=== PATIENT | male | born 1975 | race Caucasian/White ===

== ENCOUNTER 2019-10-13 12:29 | Observation (INO) ==
--- OUTSIDE RECORDS SUMMARY | 2019-10-13 12:32 | External Medical Summary | Continuity of Care Document ---
:1975 Author Name Rickey Watkins Address Unavailable Unavailable , Care Team Providers Name Role Phone Brock Watkins Un[email or web address]enda GALEAS Unavailable [email or web address] Yo Watkins Unavailable [email or web address] [place] Watkins Unavailable Unavailable Unavailable Unavailable Unavailable Problems Bone cyst (733.20) (M85.60) Hyperlipidemia (272.4) (E78.5) Hypertension (401.9) (I10) Sleep apnea (780.57) (G47.30) Hypoxia (799.02) (R09.02) Need for influenza vaccination (V04.81) (Z23) Allergies and Adverse Reactions Lincocin SOLN (Allergy) Penicillins (Allergy) Trent CAPS (Allergy) Medications Metoprolol Succinate ER 50 MG Oral Table t Extended Release 24 Hour; TAKE 1 TABLET BY ORAL ROUTE EVERY DAY June Gutiérrez Start: 25-Jul-2014 Quantity: 90 Refills: 3 Simvastatin 20 MG Oral Tablet Refills: 0 Lisinopril 20 MG Oral Tablet; TAKE ONE TABLET BY MOUTH ONE TIME DAILY June Gutiérrez Start: 16-Nov-2014 Quantity: 90 Refills: 3 Tamsulosin HCl - 0.4 MG Oral Capsule Refills: 0 ALPRAZolam 0.25 MG Oral Tablet; take 1 tablet daily if neede d GUDELIA Doshi Start: 22-Sep-2013 Quantity: 5 Refills: 1 Procedures History of Ankle Surgery Status: Complet ed Immunizations Influenza On: 10-Apr-2014 Lot #: [id number], [employer] Family History Father Family history of Father At Age ___ Status: Active Mother Family history of Mother At Age ___ Status: Active Family history of Diabetes Mellitus (V18.0) Status: Active Family history of Surgery For Abdominal Aortic Aneurysm Stat us: Active Family history of Intracranial Aneurysm Repair Status: Activ e Family history of Aneurysm Of The Aortic Arch Status: Active Family history of Adult Sleep Apnea Status: Active Brother Family history of Diabetes Mellitus (V18.0) Status: Active Family history of Hypertension (V17.49) Status: Active Family history of Family Health Status Of 2nd Brother - Dece ased Status: Active Family history of Family Health Status Of 3rd Brother - Dece ased Status: Active Family history of Adult Sleep Apnea Status: Active Sister Family history of Hypertension (V17.49) Status: Active natural daughter Family history of Asthma (V17.5) Status: Active natural son Family history of Family Health Status Child 1 Son Status: A ctive Social History - Smoking Status Never smoked tobacco Plan of Treatment Planned Observations Planned Goals not documented Results No Known Results Results not documented
--- OUTSIDE RECORDS SUMMARY | 2019-10-13 12:32 | External Medical Summary | Continuity of Care Document ---
:1975 Author Name Rickey Watkins Address Unavailable Unavailable , Care Team Providers Name Role Phone Brock Watkins Unavailable [email or web address] [place] Glenda GALEAS Unavailable [email or web address] Yo Watkins Unavailable [email or web address] [place] Brock Watkins Unavailable Unavailable Unavailable Unavailable Unavailable [...] ed Immunizations Influenza On: 10-Apr-2014 Lot #: [id number], [employer] PA[employer]UR Family History Father Family history [...]
[2019-10-13] MEDS ORDERED: SODIUM CHLORIDE 0.9% 1000ML 1,000 ML IV ONE (12:37)
[2019-10-13] MEDS ORDERED: KETOROLAC TROMETHAMINE 15 MG/ML VIAL IV STA (12:37)
--- NOTE | 2019-10-13 12:52 | Emergency Department Note ---
History of Present Illness General Chief Complaint: Abdominal Pain Stated Complaint: ABD PAIN LT SIDE Time Seen by Provider: 10/13/19 12:37 History of Present Illness Provider Complaint: abdominal pain and flank pain Onset (ago): 4 day(s) Pain Consistency: intermittent Location: L flank Radiation: LLQ Severity: moderate Maximum Pain Intensity: 4 Current Pain Intensity: 4 Quality: + stabbing and + sharp Relieved By: + medication (Hydrocodone) Exacerbated By: + nothing Associated Symptoms: + diarrhea and + fever (T-max 101); no vomiting, no dysuria, no hematemesis, no hematochezia, no melena and no hematuria Patient was started on Cipro by his PCP on Thursday. Home Medications Home Medications Medication Instructions Recorded Confirmed Type acetaminophen [Tylenol Extra 500 - 1,000 mg PO Q6H PRN 10/13/19 10/13/19 History Strength] hydrocodone-acetaminophen 0 tab PO Q6H PRN 10/13/19 10/13/19 History lisinopril [Zestril] 20 mg PO HS 10/13/19 10/13/19 History loratadine [Claritin] 10 mg PO QAM 10/13/19 10/13/19 History metoprolol succinate [Toprol XL] 50 mg PO QAM 10/13/19 10/13/19 History simvastatin [Zocor] 20 mg PO HS 10/13/19 10/13/19 History Allergies Allergy/AdvReac Type Severity Reaction Status Date / Time Penicillins Allergy Unknown Unknown- Unverified 10/13/19 13:37 had allergy as a child Past Med/Surg History Medical History (Updated 10/13/19 @ 13:44 by Raymon Urbano) Hyperlipidemia Hypertension No pertinent family history Surgical History (Updated 10/13/19 @ 12:51 by Raymon Urbano) History of ankle surgery Social History Preferred Language: [place] Communication Ability: Effective 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 Beliefs That Will Affect Care: None Current Living Situation: Spouse Other Information That Helps Us Care for You: No Feels Safe at Home: Yes Safety Concerns: Feels Safe At This Time Smoking Status: Never smoker Do You Dip or Chew Tobacco: No ; Second Hand Exposure: No ; Tobacco Cessation Education Requested by Patient: No Hx Alcohol Use: Yes Alcohol type: other Hx Substance Use: No Review of Systems A total of 10 systems reviewed and were otherwise negative Physical Exam Vital Signs: Vital Signs - 24 hr 10/13/19 12:35 10/13/19 14:26 Temperature 36.9 C Temperature Source Oral Pulse Rate 86 Pulse Rate [Right Finger] 74 Pulse Rhythm Regular Pulse Strength Normal Respiratory Rate 16 20 Respiratory Effort / Characteristics Non-Labored Non-Labored Respiratory Depth Normal Normal Respiratory Patter n Regular Blood Pressure 144/87 H Blood Pressure [Le ft Arm] 120/90 Blood Pressure Allie n 106 Blood Pressure Allie n [Left Arm] 100 Blood Pressure Pos ition Sitting Blood Pressure Pos ition [Left Arm] Sitting Pulse Oximetry 96 97 Oxygen Delivery Me thod Room Air Room Air Sepsis Recent Feve r Within 48 Hours No Sepsis Action Take n by Nursing No Action Required Physical Exam: Physical Exam GENERAL: He is oriented to person, place, and time. He appears well-developed and well-nourished. He does not appear distressed. HENT: Exam performed. - Head: Normocephalic and atraumatic. - Right Ear: External ear normal. No mastoid tenderness. - Left Ear: External ear normal. No mastoid tenderness. - Mouth/Throat: The oropharynx is clear and moist. No trismus in the jaw. No dental abscesses or uvula swelling. No oropharyngeal exudate or tonsillar abscesses. EYES: Conjunctivae and EOM are normal. Pupils are equal, round, and reactive to light. Right eye exhibits no discharge. Left eye exhibits no discharge. No scleral icterus. NECK: Normal range of motion. Neck supple. No JVD present. No spinous process tenderness present. No carotid bruit present. No rigidity. No tracheal deviation and normal range of motion present. No Brudzinski's sign and no Kernig's sign noted. CV: Normal rate, regular rhythm, normal heart sounds and intact distal pulses. There is no peripheral edema. Palpable radial pulses bue. PULM/CHEST: Effort normal and breath sounds normal. No respiratory distress. No stridor. He has no wheezes. He has no rales. - Chest Wall: He exhibits no tenderness. ABD: The abdomen is soft. Bowel sounds are normal. He has no distension. No mass is present. There is no tenderness. There is no rebound, no guarding, no Timmons's sign and no tenderness at McBurney's point. Rovsig negative. Left- sided CVA tenderness. MUSC/SKEL: Normal range of motion. There is no peripheral edema, tenderness or deformity. LYMPH: No cervical adenopathy. NEURO: He is alert and oriented to person, place, and time. He has normal strength. No cranial nerve deficit or sensory deficit. Coordination and gait normal. GCS eye subscore is 4. GCS verbal subscore is 5. GCS motor subscore is 6. Cerebellar tests wnl. SKIN: Skin is warm and dry. He is not diaphoretic. PSYCH: He has a normal mood and affect. Behavior is normal. Judgment and thought content normal. Course Course 1245: The patient was evaluated in room A3. A complete history and physical exam was performed. 1325: Vital signs stable. Patient reports his pain is better status post receiving analgesia in the emergency department. Imaging shows pancreatitis. Lipase is not elevated. Labs also show leukocytosis of 13.48. Patient will be admitted to [facility] Hospitalist team, GUDELIA Dutta was notified. 1358: Spoke with Chhaya Parisi PA-C who states to admit to Dr. Martínez. Administered Medications Discontinued Medications Sodium Chloride (Nss 1000ml) 1,000 mls @ 999 mls/hr IV .Q1H1M ONE Stop: 10/13/19 13:37 Last Infusion: 10/13/19 14:18 Dose: 0 mls/hr Documented by: [id number] Admin: 10/13/19 12:51 Dose: 999 mls/hr Documented by: [id number] Ketorolac Tromethamine (Toradol) 15 mg IV NOW STA Stop: 10/13/19 12:38 Last Admin: 10/13/19 12:51 Dose: 15 mg Documented by: [id number] Medical Decision Making Laboratory Data Result diagrams: 10/13/19 12:55 10/13/19 12:55 Lab Results 10/13/19 10/13/19 10/13/19 Range/Units 12:55 12:55 12:55 WBC 13.48 H (4.8-10.8) K/uL RBC 5.24 (4.7-6.1) M/uL Hgb 16.3 (14.0-18.0) g/dL Hct 46.6 (42-52) % MCV 88.9 (80-100) fL MCH 31.1 (25-34) pg MCHC 35.0 (32-36) g/dL RDW Std Deviation 46.0 (36.4-46.3) fL RDW Coeff of Dwight 14.0 (11.5-14.5) % Plt Count 303 (130-400) K/uL MPV 9.9 (7.4-10.4) fL Immature Gran % (Auto) 0.2 % Neut % (Auto) 77.1 % Lymph % (Auto) 12.2 % [place] % (Auto) 8.5 % Eos % (Auto) 1.6 % Baso % (Auto) 0.4 % Immature Gran # (Auto) 0.03 H (0.00-0.02) K/uL Neut # (Auto) 10.40 H (1.4-6.5) K/uL Lymph # (Auto) 1.64 (1.2-3.4) K/uL [place] # (Auto) 1.15 H (0.11-0.59) K/uL Eos # (Auto) 0.21 (0-0.5) K/uL Baso # (Auto) 0.05 (0-0.2) K/uL Sodium 132 L (136-145) mmol/L Potassium 3.9 (3.5-5.1) mmol/L Chloride 100 (98-107) mmol/L Carbon Dioxide 28 (21-32) mmol/L Anion Gap 5.0 (3-11) BUN 15 (7-18) mg/dl Creatinine 1.39 (0.6-1.4) mg/dl Est Cr Clr Drug Dosing 77.3 ml/min Est GFR ( Amer) 69.9 Est GFR (Non-Af Amer) 60.3 BUN/Creatinine Ratio 10.4 (10-20) Glucose 95 (70-99) mg/dl Calcium 9.4 (8.5-10.1) mg/dl Total Bilirubin 0.9 (0.2-1) mg/dl Direct Bilirubin 0.2 (0-0.2) mg/dl AST 71 H (15-37) U/L ALT 106 H (12-78) U/L Alkaline Phosphatase 66 (45-117) U/L Total Protein 8.4 H (6.4-8.2) gm/dl Albumin 3.5 (3.4-5.0) gm/dl Lipase 133 (73-393) U/L Urine Color Yellow Urine Appearance Clear (Clear) Urine pH 5.5 (4.5-7.5) Ur Specific [place] 1.009 (1.000-1.030) Urine Protein Negative (Negative) Urine Glucose (UA) Negative (Negative) Urine Ketones Negative (Negative) Urine Blood 1+ H (Negative) Urine Nitrite Negative (Negative) Urine Bilirubin Negative (Negative) Urine Urobilinogen Negative (Negative) Ur Leukocyte Esterase Negative (Negative) Urine WBC (Auto) 1-5 (0-5) /hpf Urine RBC (Auto) 0-4 (0-4) /hpf U Hyaline Cast (Auto) 0 (0-5) /lpf U Epithel Cells (Auto) 10-20 H (0-5) /lpf Urine Bacteria (Auto) Negative (Negative) Imaging Data Radiologist's Impression: ABDOMEN AND PELVIS CT WITHOUT CONTRAST CT DOSE: 1021.22 mGycm HISTORY: L flank and abdominal pain TECHNIQUE: Multiaxial CT images of the abdomen and pelvis were performed without contrast. A dose lowering technique was utilized adhering to the principles of ALARA. COMPARISON STUDY: Abdomen and pelvis CT 06/23/2013. FINDINGS: Linear density within the base of the left lower lobe consistent with subsegmental atelectasis. No pneumoperitoneum. No pneumatosis. Stable benign- appearing lucent lesion within the proximal left femur. No fractures within the visualized osseous structures. Trace left pleural effusion. The unenhanced liver, spleen, adrenal glands, and gallbladder are unremarkable. No renal or ureteral stones. No hydronephrosis. Mild bladder wall thickening is likely due to underdistention. Stable 5 cm hypodense lesion within the left kidney. This contains a punctate calcification. Given the long-term stability this favors a benign cyst. No retroperitoneal lymphadenopathy. Normal caliber abdominal aorta. Mild thickening and surrounding inflammatory change at the tail of the pancreas as well as trace fluid along the left paracolic gutter. Findings are consistent with acute pancreatitis. Suboptimal evaluation for bowel pathology due to the lack of intravenous and oral contrast. However, there is no definite bowel wall thickening or obstruction. Colonic diverticulosis. No evidence for diverticulitis. Normal appendix. IMPRESSION: 1. Inflammatory change and a small amount of fluid surrounding the tail of the pancreas consistent with acute pancreatitis. 2. Trace left pleural effusion. 3. No renal or ureteral stones. No hydronephrosis. 4. No definite bowel wall thickening or obstruction. 5. Colonic diverticulosis. 6. Additional stable findings as described above. ACT 112: Negative or not required by law. Electronically signed by: Norberto Sinclair M.D. 10/13/2019 1:11 PM Dictated: 10/13/19 1304 Transcribed: 10/13/19 1304 [facility] Narrative 1245: The patient was evaluated in room A3. A complete history and physical exam was performed. 1325: Vital signs stable. Patient reports his pain is better status post receiving analgesia in the emergency department. Imaging shows pancreatitis. Lipase is not elevated. Labs also show leukocytosis of 13.48. Patient will be admitted to [facility] hospitalist team, GUDELIA Dutta was notified. 1358: Spoke with Chhaya Parisi PA-C who states to admit to Dr. Martínez Impression & Plan Pancreatitis Discharge Plan Visit Data Chief Complaint: Abdominal Pain Stated Complaint: ABD PAIN LT SIDE ED Provider: Raymon Urbano Discharge Problem: Pancreatitis Patient Disposition: Being Evaluated by Hospitalist Forms [facility] Prescriptions: No Action metoprolol succinate [Toprol XL] 50 mg tablet extended release 24 hr 50 mg PO QAM RF: 0 lisinopril [Zestril] 20 mg tablet 20 mg PO HS RF: 0 acetaminophen [Tylenol Extra Strength] 500 mg Tablet 500 - 1,000 mg PO Q6H PRN (Reason: Pain) RF: 0 simvastatin [Zocor] 20 mg tablet 20 mg PO HS RF: 0 loratadine [Claritin] 10 mg Tablet 10 mg PO QAM RF: 0 hydrocodone-acetaminophen 2.5-325 mg Tablet 0 tab PO Q6H PRN (Reason: Pain) RF: 0 Referrals Referrals: Bernardino Ivey [Primary Care Provider] - Discharge Problem: Pancreatitis Qualifiers: Chronicity: acute Pancreatitis type: unspecified pancreatitis type Acute pancreatitis complication: unspecified Qualified Code(s): K85.90 - Acute pancreatitis without necrosis or infection, unspecified
[2019-10-13 13:00] LABS: Basophils # (auto) 0.05 K/uL (0-0.2); Basophils % (auto) 0.4 %; Eosinophils # (auto) 0.21 K/uL (0-0.5); Eosinophils % (auto) 1.6 %; Hematocrit (blood only) 46.6 % (42-52); Hemoglobin 16.3 g/dL (14.0-18.0); Immature Granulocytes # (auto) 0.03 K/uL (0.00-0.02); Immature Granulocytes % (auto) 0.2 %; Lymphocytes # (auto) 1.64 K/uL (1.2-3.4); Lymphocytes % (auto) 12.2 %; Mean Corpuscular Hemoglobin 31.1 pg (25-34); Mean Corpuscular Volume 88.9 fL (80-100); Mean Platelet Volume 9.9 fL (7.4-10.4); Monocytes # (auto) 1.15 K/uL (0.11-0.59); Monocytes % (auto) 8.5 %; Neutrophils % (auto) 77.1 %; Platelet Count 303 K/uL (130-400); Red Blood Count 5.24 M/uL (4.7-6.1); White Blood Count 13.48 K/uL (4.8-10.8)
[2019-10-13 13:07] LABS: Appearance Urine Clear (Clear); Bilirubin Urine Negative (Negative); Blood Urine 1+ (Negative); Color Urine Yellow; Glucose Urine UA Negative (Negative); Ketones Urine Negative (Negative); Leukocyte Esterase Urine Negative (Negative); Nitrite Urine Negative (Negative); Protein Urine Negative (Negative); Specific Gravity Urine 1.009 (1.000-1.030); Urobilinogen Urine Negative (Negative); pH Urine 5.5 (4.5-7.5)
--- NOTE | 2019-10-13 13:13 | CT Scan Report ---
ABDOMEN AND PELVIS CT WITHOUT CONTRAST CT DOSE: 1021.22 mGycm HISTORY: L flank and abdominal pain TECHNIQUE: Multiaxial CT images of the abdomen and pelvis were performed without contrast. A dose lo wering technique was utilized adhering to the principles of ALARA. COMPARISON STUDY: Abdomen and pelvis CT 06/23/2013. FINDINGS: Linear density within the base of the left lower lobe consistent with subsegmental atelecta sis. No pneumoperitoneum. No pneumatosis. Stable benign-appearing lucent lesion within the proximal l eft femur. No fractures within the visualized osseous structures. Trace left pleural effusion. The un enhanced liver, spleen, adrenal glands, and gallbladder are unremarkable. No renal or ureteral stones . No hydronephrosis. Mild bladder wall thickening is likely due to underdistention. Stable 5 cm hypod ense lesion within the left kidney. This contains a punctate calcification. Given the long-term stabi lity this favors a benign cyst. No retroperitoneal lymphadenopathy. Normal caliber abdominal aorta. M ild thickening and surrounding inflammatory change at the tail of the pancreas as well as trace fluid along the left paracolic gutter. Findings are consistent with acute pancreatitis. Suboptimal evaluat ion for bowel pathology due to the lack of intravenous and oral contrast. However, there is no defini te bowel wall thickening or obstruction. Colonic diverticulosis. No evidence for diverticulitis. Norm al appendix. IMPRESSION: 1. Inflammatory change and a small amount of fluid surrounding the tail of the pancreas consistent wi th acute pancreatitis. 2. Trace left pleural effusion. 3. No renal or ureteral stones. No hydronephrosis. 4. No definite bowel wall thickening or obstruction. 5. Colonic diverticulosis. 6. Additional stable findings as described above. ACT 112: Negative or not required by law. Electronically signed by: Norberto Sinclair M.D. 10/13/2019 1:11 PM
[2019-10-13 13:15] LABS: Albumin Level 3.5 gm/dl (3.4-5.0); BUN Creatinine Ratio 10.4 (10-20); Bilirubin Direct 0.2 mg/dl (0-0.2); Calcium 9.4 mg/dl (8.5-10.1); Creatinine Clr Calc Pharmacy 77.3 ml/min; Est GFR (African American) 69.9; Est GFR (Non-African American) 60.3; Potassium 3.9 mmol/L (3.5-5.1)
[2019-10-13 13:18] LABS: Bilirubin,Total 0.9 mg/dl (0.2-1); Total Protein 8.4 gm/dl (6.4-8.2)
[2019-10-13 13:24] LABS: RBC Urine Automated 0-4 /hpf (0-4)
[2019-10-13 13:25] LABS: Bacteria Urine Automated Negative (Negative); Cast Urine Automated 0 /lpf (0-5)
--- NOTE | 2019-10-13 15:19 | History & Physical Report ---
Date of Service October 13, 2019 Assessment & Plan (1) Abdominal pain: (2) Leucocytosis: This is a 44 year old M who has a significant PMH of HTN, HLD, Tobacco abuse, Obesity who presents to ED 2/2 to abdominal pain x 4-[address] can abd/pelvis concerning for Inflammatory change and a small amount of fluid surrounding the tail of the pancreas consistent with acute pancreatitis. Normal Lipase. History of his location and description of abdominal pain doesn't favor pancreatitis, as well as fever and leukocytosis. Has had 7 doses of cipro. admit to Med/Surg Obtain CT scan abd/pelvis with IV and oral contrast to eval bowel pathology r/o diverticulitis, abscess, microperforation start IV rocephin 2g and IV flagyl 500mg IV Q8h until imaging returns RUQ US Remain NPO with sips until CT scan complete IVF 100cc/hr x 2 L IV morphine 4mg q4hr severe pain, PO vicodin for moderate pain (3) Elevated LFTs: AST 71, ALT 106 no RUQ pain, ? if abd pain related to gall bladder or bile duct pathology though history doesn't suggest that he is on statin obtain RUQ U/S (4) Hypertension: blood pressure stable continue lisinopril and metoprolol (5) Hyperlipidemia: hold statin for now in setting of elevated LFT (6) Microscopic hematuria: pt with long time microscopic hematuria follows Dr. Gonzalez - last seen in 2017 has had cystoscopy jun 2013 and noted heavy trabeculation with no stricture or BPH would recommend follow up with Urology given its been 3 years (7) Renal cyst, left: 5cm L renal cyst follows Dr. Gonzalez of urology last seen in 2017 - she felt no further follow up imaging needed (8) DVT prophylaxis: Lovenox SQ Disposition: admit to med/surg Follow up: PCP Bernardino Ivey PA-C upon discharge Pt was seen and examined in collaboration with Dr. Martínez, please see addendum History of Present Illness Chief Complaint: Abdominal pain x 4-5 days. Primary Care Provider: Bernardino Ivey This is a 44 year old M who has a significant PMH of HTN, HLD, Tobacco abuse, Obesity who presents to ED 2/2 to abdominal pain x 4-5 days. Pain started Thursday night around 00:00. Pain located L mid abdomen, LUQ with radiation up to L flank. Pain was constant, 10/10, severe, sharp. "I thought maybe I had to go to the bathroom, but I couldn't." He was up almost all night trying to move bowels. Pain made worse with deep breaths and leaning forward. He had minimal improvement with APAP and had old hydrocodone so tried that. He did telemedicine with PCP on Thursday who was concerning for possible diverticulitis and prescribed cipro 500mg bid. He has taken 7 doses of this. Pain started to improve on Thursday and is less severe. He had intermittent fevers 99.6-101 until yesterday. Diminished appetite eating mostly soup and jello. Denies N/V, chills, sweats, lightheaded, dizziness, chest pain, sob, cough, hemetemsis, melena, hematochezia, dysuria, increased urg/freq with urination. He tried a milkshake last evening which causes him to have diarrhea but otherwise denies change in bowel habits. Never had similar sx in past. +FH of diverticulitis in sister and mother. In ED patient remained hemodynamically stable. He was afebrile in ED. Lab work notable for leukocytosis 13 point five 8K, H&H 16.3 and 46.6, platelet 303, sodium 132, BUN 15, creatinine 1.39, AST 71, ALT 106, urinalysis +[address] scan abd/pelvis w/o contrast revealed + tail pancreatitis, no renal stone, + stable 5cm renal cyst stable from prior 2012 CT, Inflammatory change and a small amount of fluid surrounding the tail of the pancreas consistent with acute pancreatitis, Trace left pleural effusion, Colonic diverticulosis. In ED he received IVF and IV toradol with improvement in pain. Allergies Allergy/AdvReac Type Severity Reaction Status Date / Time Penicillins Allergy Unknown Unknown- Unverified 10/13/19 13:37 had allergy as a child Home Medications Home Medications Medication Instructions Recorded Confirmed Type acetaminophen [Tylenol Extra 500 - 1,000 mg PO Q6H PRN 10/13/19 10/13/19 History Strength] ciprofloxacin HCl [Cipro] 500 mg PO Q12H 10/13/19 10/13/19 History hydrocodone-acetaminophen 0 tab PO Q6H PRN 10/13/19 10/13/19 History lisinopril [Zestril] 20 mg PO HS 10/13/19 10/13/19 History loratadine [Claritin] 10 mg PO QAM 10/13/19 10/13/19 History metoprolol succinate [Toprol XL] 50 mg PO QAM 10/13/19 10/13/19 History simvastatin [Zocor] 20 mg PO HS 10/13/19 10/13/19 History Past Med/Surg History Medical History (Updated 10/13/19 @ 15:57 by Chhaya San PA-C) Hyperlipidemia Hypertension Surgical History History of ankle surgery Family History Mother Diverticulitis Sister Diverticulitis Social History (Updated 10/13/19 @ 15:18 by Chhaya San PA-C) Preferred Language: Urdu Communication Ability: Effective Bobbin Collector Required: No Beliefs That Will Affect Care: None Current Living Situation: Spouse current occupational status: employed Other Information That Helps Us Care for You: No Feels Safe at Home: Yes Safety Concerns: Feels Safe At This Time Smoking Status: Current every day smoker Tobacco Type: smokeless tobacco ; Cigarettes Per Day: 1 can of chew a day ; Do You Dip or Chew Tobacco: Yes ; Second Hand Exposure: No ; Tobacco Cessation Education Requested by Patient: No Hx Alcohol Use: Yes Alcohol type: other Hx Substance Use: No Review of Systems Review of Systems: All systems reviewed & are unremarkable except as noted in HPI & below Physical Exam Physical Exam: Constitutional: WD/WN, Obese, M, vitals as above, NAD, sitting up in bed, pleasant, conversing easily Head: Normocephalic, Atraumatic Eyes: PERRL, conjunctivae normal, anicteric sclerae ENMT: external ear and nose normal, oropharynx normal Neck: trachea midline, no thyromegaly normal visual inspection Respiratory: normal respiratory effort, lungs clear to auscultation, no wheeze, rales, rhonchi. Normal insp/exp effort, no accessory muscle use Cardiovascular: RRR, no murmur, no edema Vessels: no JVD or carotid bruit Chest: normal inspection of chest Abdomen: protuberant abd, normal bowel sounds, soft, + tender to palpation L Lateral abdominal wall in upper quadrant and L Flank, No jackie cva tenderness Musculoskeletal: no cyanosis or clubbing, extremities motor strength 5/5 Skin: no rashes, warm and dry normal turgor Neurologic: PERRL, EOMI, accommodation nl, no face palsy, no dysarthria CN's II-XI intact bilaterally and moves all extremities Psychiatric: A+Ox3, euthymic affect Lymphatic: no cervical or axillary lymphadenopathy : deferred Results & Data Results & Data ([facility]) Vital Signs (Past 12 Hours) Vital Signs Temp Pulse Pulse Resp BP BP Pulse Ox 10/13/19 14:26 74 20 120/90 97 10/13/19 12:35 36.9 C 86 16 144/87 H 96 Laboratory Results Short CBC 10/13/19 10/13/19 Range/Units 12:55 12:55 WBC 13.48 H (4.8-10.8) K/uL Hgb 16.3 (14.0-18.0) g/dL Hct 46.6 (42-52) % Plt Count 303 (130-400) K/uL Creatinine 1.39 (0.6-1.4) mg/dl BMP 10/13/19 12:55 Sodium 132 L Potassium 3.9 Chloride 100 Carbon Dioxide 28 BUN 15 Creatinine 1.39 Glucose 95 Calcium 9.4 Liver Function 10/13/19 Range/Units 12:55 Total Bilirubin 0.9 (0.2-1) mg/dl Direct Bilirubin 0.2 (0-0.2) mg/dl AST 71 H (15-37) U/L ALT 106 H (12-78) U/L Alkaline Phosphatase 66 (45-117) U/L Albumin 3.5 (3.4-5.0) gm/dl Urine 10/13/19 Range/Units 12:55 Urine Color Yellow Urine Appearance Clear (Clear) Urine pH 5.5 (4.5-7.5) Ur Specific [place] 1.009 (1.000-1.030) Urine Protein Negative (Negative) Urine Glucose (UA) Negative (Negative) Diagnostic Findings CT Abd/Pelvis: IMPRESSION: 1. Inflammatory change and a small amount of fluid surrounding the tail of the pancreas consistent with acute pancreatitis. 2. Trace left pleural effusion. 3. No renal or ureteral stones. No hydronephrosis. 4. No definite bowel wall thickening or obstruction. 5. Colonic diverticulosis. 6. Additional stable findings as described above. Medications Administered Discontinued Medications Sodium Chloride (Nss 1000ml) 1,000 mls @ 999 mls/hr IV .Q1H1M ONE Stop: 10/13/19 13:37 Last Infusion: 10/13/19 14:18 Dose: 0 mls/hr Documented by: [id number] Admin: 10/13/19 12:51 Dose: 999 mls/hr Documented by: [id number] Ketorolac Tromethamine (Toradol) 15 mg IV NOW STA Stop: 10/13/19 12:38 Last Admin: 10/13/19 12:51 Dose: 15 mg Documented by: [id number] Code Status & VTE Plan Code Status Full Code VTE Prophylaxis Plan VTE Prophylaxis will be ordered: Yes Supervising Physician Co-Signing Physician Notes I have seen and examined the patient and have discussed the case with the provider above. I agree with the assessment and plan as stated with the following exceptions. 44 yo M with recent LLQ pain with radiation into his left flank and fever for several days presented after no improvement in his LLQ pain. He reports being given Cipro for presumed acute diverticulitis and was improving clinically including fevers resolving and feeling better. However, he felt the pain should have been more improved than it was today, prompting evaluation at the ER. Exam reveals a nontender abdomen with some very specific point tenderness to the lateral lower costal margin on the left. There is inflammation in the tail of the pancreas on imaging and a lack of colonic inflammation, leading one to suspect acute pancreatitis. However, there is no epigastric tenderness, pain or nausea with food or at all, and his lipase is normal. No evidence of fluid collection or abscess was seen on imaging and in setting of fever and persistent abdominal pain, he was empirically covered on Rocephin/Flagyl in case of microperforation. No changes in BMs were noted including no hematochezia. No evidence of kidney stones. I suspect he was getting better with time and supportive measures at home (including self administered hydrocodone), and won't need antibiotics moving forward if he continues to appear clinically well. He appears well this afternoon. Will hold him NPO x sips and chips until GI can weigh in. Cont IVF. Appreciate recommendations. Likely to home in next 1-2 days. Mauricio, DO
[2019-10-13] MEDS ORDERED: MoRPHine SULFATE 4 MG/ML 1 ML CARP\\VIAL IV PRN (16:27)
[2019-10-13] MEDS ORDERED: ONDANSETRON INJ 2 MG/ML 2 ML VIAL IV PRN (16:27)
[2019-10-13] MEDS ORDERED: ACETAMINOPHEN 325 MG TAB PO PRN (16:27)
[2019-10-13] MEDS ORDERED: SODIUM CHLORIDE 0.9% 1000ML 1,000 ML IV SCH (16:27)
[2019-10-13] MEDS ORDERED: HYDROCODONE/ACETAMOPHEN 5/325MG TAB PO PRN (16:27)
[2019-10-13] MEDS: cefTRIAXone SODIUM 2,000 MG in DEXTROSE 5% 50 ML IV SCH (16:38)
[2019-10-13] MEDS ORDERED: IOVERSOL 100ml IV PRN (17:44)
--- NOTE | 2019-10-13 18:04 | CT Scan Report ---
CT abd pelvis oral and IV con CLINICAL HISTORY: Lower quadrant abdominal pain. Possible abscess. Possible diverticulitis. COMPARISON STUDY: Noncontrast study performed the same day. TECHNIQUE: The patient was scanned following administration of dilute oral contrast, and in a dynamic helical fashion during intravenous administration of 94 cc of Optiray 320. A dose lowering techniqu e was utilized adhering to the principles of ALARA. CT DOSE: 1411.03 mGy.cm FINDINGS: Lower chest: There are mild left basilar atelectatic changes. There is a trace left pleural effusion. Liver: The contrast-enhanced liver is normal in size, contour, and attenuation. There is no intrahepa tic biliary ductal dilatation. The hepatic veins and portal veins are patent. Gallbladder: Unremarkable. Spleen: Normal in size and attenuation. Pancreas: There is infiltration of the fat surrounding the pancreatic tail consistent with acute inte rstitial pancreatitis. There is a small amount of surrounding fluid extending into the left paracolic gutter. There is no evidence of pancreatic necrosis. Adrenal glands: Unremarkable. Kidneys: There is a 5 cm left renal cyst containing a septation and small calcification within the se ptation. There is no hydronephrosis. Bowel: There are no transition zones to indicate bowel obstruction. There is no evidence of acute div erticulitis. There are a few colonic diverticula present. Minimal bowel wall thickening at the level of the proximal descending colon is likely secondary to pancreatitis. Peritoneum: There is trace fluid within the left paracolic gutter. There is no free intraperitoneal a ir. There are small fat-containing umbilical hernia. Vasculature: The abdominal aorta is normal in course and caliber. Adenopathy: None. Pelvic viscera: There is borderline bladder wall thickening. Skeletal structures: There is a stable 5 cm septated lytic lesion within the proximal left femur with a narrow zone of transition. IMPRESSION: 1. CT findings indicative of acute interstitial pancreatitis. No evidence of pancreatic necrosis 2. No evidence of bowel obstruction. No evidence of free air 3. No evidence of acute diverticulitis. No evidence of acute appendicitis. ACT 112: Negative or not required by law. Electronically signed by: Syed Matamoros M.D. 10/13/2019 6:03 PM
[2019-10-13] MEDS: metroNIDAZOLE 500 MG/100 ML BAG IV SCH (18:11)
[2019-10-13] MEDS: ENOXAPARIN INJ 40 MG/0.4 ML SYR SQ SCH (21:06)
[2019-10-13] MEDS: lisinopriL 20 MG TAB PO SCH (21:06)
[2019-10-14] MEDS: metroNIDAZOLE 500 MG/100 ML BAG IV SCH ×3 (01:23→18:19)
[2019-10-14] MEDS: LACTATED RINGER'S 1,000 ML IV SCH ×3 (01:23→19:24)
[2019-10-14 07:02] LABS: Basophils # (auto) 0.03 K/uL (0-0.2); Basophils % (auto) 0.3 %; Eosinophils # (auto) 0.34 K/uL (0-0.5); Hematocrit (blood only) 42.4 % (42-52); Hemoglobin 14.6 g/dL (14.0-18.0); Immature Granulocytes # (auto) 0.03 K/uL (0.00-0.02); Immature Granulocytes % (auto) 0.3 %; Mean Corpuscular Hemoglobin 30.7 pg (25-34); Mean Corpuscular Volume 89.1 fL (80-100); Mean Platelet Volume 9.5 fL (7.4-10.4); Monocytes # (auto) 1.04 K/uL (0.11-0.59); Neutrophils # (auto) 8.56 K/uL (1.4-6.5); Neutrophils % (auto) 74.4 %; Platelet Count 282 K/uL (130-400); RDW Coefficient of Variation 14.2 % (11.5-14.5); RDW Standard Deviation 46.8 fL (36.4-46.3); Red Blood Count 4.76 M/uL (4.7-6.1)
[2019-10-14 07:20] LABS: Albumin Level 3.2 gm/dl (3.4-5.0); BUN Creatinine Ratio 12.3 (10-20); Calcium 8.9 mg/dl (8.5-10.1); Est GFR (African American) 75.1; Est GFR (Non-African American) 64.8; Potassium 3.9 mmol/L (3.5-5.1)
[2019-10-14 07:23] LABS: Albumin Globulin Ratio 0.7 (0.9-2); Bilirubin,Total 0.7 mg/dl (0.2-1); Globulin 4.5 gm/dl (2.5-4.0); Mean Corpuscular Hgb Conc 34.4 g/dL (32-36); Total Protein 7.7 gm/dl (6.4-8.2)
[2019-10-14] MEDS ORDERED: MoRPHine SULFATE 2 MG/ML CARP IV PRN (08:03)
[2019-10-14] MEDS ORDERED: OXYCODONE HCL IR 5 MG TAB (IMMEDIATE RELEASE) PO PRN (08:03)
[2019-10-14] MEDS ORDERED: ACETAMINOPHEN 325 MG TAB PO PRN (08:03)
[2019-10-14] MEDS: METOPROLOL SUCC 50MG EXT REL TAB PO SCH (08:08)
--- NOTE | 2019-10-14 08:58 | Hospitalist Progress Note ---
Date of Service October 14, 2019 Assessment & Plan (1) Abdominal pain: secondary to acute interstitial pancreatitis -This is a 44 year old M who has a significant PMH of HTN, HLD, Tobacco abuse, Obesity who presents to ED 2/2 to abdominal pain for 4 to 5 days for which he had poor appetite and minimal oral intake. Patient reports left sided abdomen pain started on Thursday10/09/2019 and had been progressively improving but did not go away so he came to the emergency room on 10/13/2019 -admission CT Abdomen/Pelvis scan without Contrast "Linear density within the base of the left lower lobe consistent with subsegmental atelectasis. No pneumoperitoneum. No pneumatosis. Stable benign- appearing lucent lesion within the proximal left femur. No fractures within the visualized osseous structures. Trace left pleural effusion. The unenhanced liver, spleen, adrenal glands, and gallbladder are unremarkable. No renal or ureteral stones. No hydronephrosis. Mild bladder wall thickening is likely due to underdistention. Stable 5 cm hypodense lesion within the left kidney. This contains a punctate calcification. Given the long-term stability this favors a benign cyst. No retroperitoneal lymphadenopathy. Normal caliber abdominal aorta. Mild thickening and surrounding inflammatory change at the tail of the pancreas as well as trace fluid along the left paracolic gutter. Findings are consistent with acute pancreatitis. Suboptimal evaluation for bowel pathology due to the lack of intravenous and oral contrast. However, there is no definite bowel wall thickening or obstruction. Colonic diverticulosis. No evidence for diverticulitis. Normal appendix." -patient was empirically started on IV ceftriaxone 2 grams daily and metronidazole 500 mg IV every 8 hours -follow up CT Abdomen/Pelvis with IV/oral contrast on admission "findings indicative of acute interstitial pancreatitis. No evidence of pancreatic necrosis. No evidence of bowel obstruction. No evidence of free air. No evidence of acute diverticulitis. No evidence of acute appendicitis. -continue lactated ringer's 150 cc/hr, prn pain medications, hospitalist discussed with patient of notifying when he feels comfortable to eat, he can let nurse start liquid diet and advance as tolerated, awaiting full gastroenterology consult recommendations, appears that GI service is ordering MRCP, continue antibiotics for now (2) Leucocytosis: -admission WBC 13.58 K/ul -10/14/2019 WBC is trending down to 11.5 K/ul (3) Elevated LFTs: -admission AST/ALT is 71 and 106 -10/14/2019 AST/ALT has trended down to 45 and 91 (4) Hypertension: -continue lisinopril and metoprolol (5) Hyperlipidemia: Obesity -statin is held as patient is NPO and on bowel rest (6) Microscopic hematuria: -pt with long time microscopic hematuria, follows Dr. Gonzalez - last seen in 2016, has had cystoscopy June 2013 and noted heavy trabeculation with no stricture or BPH -admission UA with 1 + classification for "urine blood" -admitting hospitalist team suggested routine follow up with Urology. Dr. Gonzalez since it has been 3 years since last visit (7) Renal cyst, left: -5cm L renal cyst that is stable -Patient follows Dr. Gonzalez of urology and was last seen in 2016 - she felt no further follow up imaging needed (8) DVT prophylaxis: -Lovenox SQ Patient's primary care provder is in [place] and is Bernardino Ivey PA-C and patient should make hospital follow up in 1 week of hospital discharge Admission and Anticipated Discharge Date Admission Date: October 13, 2019 Subjective Patient seen and examined at bedside. No acute distress. On Iv fluids and bowel rest. Patient reports left sided abdomen pain has been improving. No fevers or vomiting. abdomen is soft and no acute tenderness on palpation. breathing on room air and no shortness of breath and no chest pain. review of systems performed and no other acute symptoms Review of Systems Review of Systems: All systems reviewed & are unremarkable except as noted in HPI & below Physical Exam Constitutional: WD/WN, vitals as above Eyes: PERRL, conjunctivae normal, anicteric sclerae EOM intact bilaterally ENMT: external ear and nose normal, oropharynx normal Neck: normal visual inspection Respiratory: normal respiratory effort, lungs clear to auscultation Cardiovascular: Rate/Rhythm: regular rate and regular rhythm Gastrointestinal (Abdomen): normal bowel sounds, soft, nontender, no hepatosplenomegaly Musculoskeletal: Head/Neck/Chest: normocephalic and head atraumatic Neurologic: PERRL, EOMI, accommodation nl, no face palsy, no dysarthria CN's II-XI intact bilaterally Psychiatric: A+Ox3, euthymic affect Results & Data Results & Data ([facility]) Vital Signs (Past 12 Hours) Vital Signs Temp Pulse Resp BP Pulse Ox 10/14/19 07:43 37.1 C 74 18 119/72 96 10/13/19 23:31 37.4 C 77 16 130/82 97 10/13/19 21:00 145/86 H
--- NOTE | 2019-10-14 10:44 | Gastrointestinal Consultation ---
Date of Consultation October 14, 2019 Assessment & Plan (1) Pancreatitis: (2) Elevated LFTs: Pt is a 44 y/o male, presented w L sided abd pain, fevers. Labs and CT showed signs of leukocytosis, transaminitis, pancreatitis on tail area. - Obtain viral and hepatitis serologies, APAP level, HIV - Will check MRCP, if negative for biliary stone, plan to advance diet as tolerated. - Pt should eventually get outpt EUS eval - Avoid ETOH Supervising Physician Co-Signing Physician Notes I performed a history and physical examination of the patient today, including specifically on physical exam - soft abdomen. I have discussed the patient's management with the advanced practitioner. Please refer to the nurse practitioner's note for the documented findings and plan of care. 44 yrs old male patient presented with abdominal pain, CT scan showed mild pancreatitis, lipase is normal, mild elevation in AST/ALT with occasional alcohol use. No biliary dilation on CT scan. Recommend: Obtain MRCP today. IV Hydration. Lipid panel. Start Clear liquid diet. Check viral etiologies. If MRCP is negative then will arrange EUS as OP in 4 weeks. recall GI if needed. History of Present Illness Reason for Consultation: Pancreatitis Requesting Physician: Dr. Franklyn Feldman Attending Physician: Dr. Shiloh Live History of Present Illness Pt is a 44 y/o male who presented w c/o L sided abd pain since last Thursday associated w subjective fever. Denies any CP, SOB, URI symptoms, n/v, changes in bowel habits. He felt the urge to defecate on Thursday but didn't really have any BMs. 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 He denies anyone else w similar symptoms. He has been taking Tylenol and old Rx of Hydrocodone for the fever and abd pain. He initially suspected he may have diverticulitis and was given antibx by PCP but symptoms never really went away On eval, noted mild leukocytosis, transaminitis, normal Lipase. No fevers. Ct abd/pelvis: IMPRESSION: 1. Inflammatory change and a small amount of fluid surrounding the tail of the pancreas consistent with acute pancreatitis. 2. Trace left pleural effusion. 3. No renal or ureteral stones. No hydronephrosis. 4. No definite bowel wall thickening or obstruction. 5. Colonic diverticulosis. He chews tobacco, drinks ETOH over weekend, last drank 3 beers on Thursday. Denies illicit drugs, herbal supplements. + tattoo on R shoulder. Denies family hx of autoimmune dz or pancreatitis Allergies Allergy/AdvReac Type Severity Reaction Status Date / Time Penicillins Allergy Unknown Unknown- Unverified 10/13/19 13:37 had allergy as a child Home Medications Home Medications Medication Instructions Recorded Confirmed Type acetaminophen [Tylenol Extra 500 - 1,000 mg PO Q6H PRN 10/13/19 10/13/19 History Strength] ciprofloxacin HCl [Cipro] 500 mg PO Q12H 10/13/19 10/13/19 History hydrocodone-acetaminophen 0 tab PO Q6H PRN 10/13/19 10/13/19 History lisinopril [Zestril] 20 mg PO HS 10/13/19 10/13/19 History loratadine [Claritin] 10 mg PO QAM 10/13/19 10/13/19 History metoprolol succinate [Toprol XL] 50 mg PO QAM 10/13/19 10/13/19 History simvastatin [Zocor] 20 mg PO HS 10/13/19 10/13/19 History Patient History Medical History Hyperlipidemia Hypertension Surgical History History of ankle surgery Family History Mother Diverticulitis Sister Diverticulitis Social History Preferred Language: Niuean Communication Ability: Effective Home School Teacher Required: No Beliefs That Will Affect Care: None Current Living Situation: Spouse current occupational status: employed Other Information That Helps Us Care for You: No Feels Safe at Home: Yes Safety Concerns: Feels Safe At This Time Smoking Status: Current every day smoker Tobacco Type: smokeless tobacco ; Cigarettes Per Day: 1 can of chew a day ; Do You Dip or Chew Tobacco: Yes ; Second Hand Exposure: No ; Tobacco Cessation Education Requested by Patient: No Hx Alcohol Use: Yes Alcohol type: other Hx Substance Use: No Review of Systems Review of Systems: All systems reviewed & are unremarkable except as noted in HPI & below Physical Exam Constitutional: WD/WN, vitals as above well groomed, cooperative and comfortable Eyes: PERRL, conjunctivae normal, anicteric sclerae ENMT: external ear and nose normal, oropharynx normal Respiratory: normal respiratory effort, lungs clear to auscultation Cardiovascular: RRR, no murmur, no edema Gastrointestinal (Abdomen): Percussion/Palpation: + abdomen tender (along L side) and abdomen soft Skin: no rashes, warm and dry no jaundice Neurologic: Motor/Sensory: no asterixis Psychiatric: A+Ox3, euthymic affect Lymphatic: no lymphedema Results & Data ([facility]) Vital Signs (Past 12 Hours) Vital Signs Temp Pulse Resp BP Pulse Ox 10/14/19 07:43 37.1 C 74 18 119/72 96 10/13/19 23:31 37.4 C 77 16 130/82 97 (1) Pancreatitis Acute pancreatitis complication: unspecified Chronicity: acute Pancreatitis type: unspecified pancreatitis type Qualified Code(s): K85.90 - Acute pancreatitis without necrosis or infection, unspecified
[2019-10-14 11:21] LABS: Hepatitis B Surface Antigen Neg (Neg)
[2019-10-14 11:24] LABS: Chol HDL Ratio 9; Cholesterol 144 mg/dl (0-200); HDL Cholesterol 17 mg/dl; LDL Cholesterol Calculated 96 mg/dl; Triglycerides 154 mg/dl (0-150); VLDL Cholesterol 31 mg/dl
[2019-10-14 11:49] LABS: Hepatitis C IgG 13Yrs+Old_Rflx Neg (Neg)
--- NOTE | 2019-10-14 17:04 | Magnetic Resonance Report ---
Study: MRCP HISTORY: Pancreatitis COMPARISON: CT 10/13/2019 FINDINGS: Acute pancreatitis primarily involving the pancreatic tail and distal body. Moderate peripa ncreatic infiltrative change with a trace amount of free fluid within the left paracolic gutter. No evidence for abscess or collection. Several left renal cysts unchanged. Nonobstructive bowel pattern. Slight reactive edematous change of the descending colon due to the adjacent pancreatitis inflammatory change. The MRCP component of the study is unremarkable. There is no evidence for choledocholithiasis. IMPRESSION: 1.. 1. Acute mid body and distal distal pancreatitis involving the pancreatic body and tail. 2. Moderate peripancreatic infiltrative change with mild reactive wall edematous change of the adjace nt splenic flexure of the colon. 3. Normal MRCP with no evidence for choledocholithiasis. Electronically signed by: Lefty Calhoun M.D. 10/14/2019 5:03 PM
[2019-10-14] MEDS: cefTRIAXone SODIUM 2,000 MG in DEXTROSE 5% 50 ML IV SCH (17:26)
[2019-10-14] MEDS: lisinopriL 20 MG TAB PO SCH (20:08)
[2019-10-14] MEDS: ENOXAPARIN INJ 40 MG/0.4 ML SYR SQ SCH (20:08)
[2019-10-15] MEDS: metroNIDAZOLE 500 MG/100 ML BAG IV SCH (01:49)
[2019-10-15 05:08] LABS: Basophils # (auto) 0.04 K/uL (0-0.2); Basophils % (auto) 0.4 %; Eosinophils # (auto) 0.33 K/uL (0-0.5); Eosinophils % (auto) 3.4 %; Hematocrit (blood only) 39.7 % (42-52); Hemoglobin 13.5 g/dL (14.0-18.0); Immature Granulocytes # (auto) 0.04 K/uL (0.00-0.02); Immature Granulocytes % (auto) 0.4 %; Lymphocytes # (auto) 1.54 K/uL (1.2-3.4); Lymphocytes % (auto) 15.7 %; Mean Corpuscular Hemoglobin 30.3 pg (25-34); Mean Platelet Volume 9.5 fL (7.4-10.4); Monocytes # (auto) 1.11 K/uL (0.11-0.59); Monocytes % (auto) 11.3 %; Neutrophils # (auto) 6.73 K/uL (1.4-6.5); Neutrophils % (auto) 68.8 %; Platelet Count 227 K/uL (130-400); RDW Standard Deviation 45.8 fL (36.4-46.3); Red Blood Count 4.46 M/uL (4.7-6.1); White Blood Count 9.79 K/uL (4.8-10.8)
[2019-10-15 05:36] LABS: BUN Creatinine Ratio 10.1 (10-20); Calcium 8.9 mg/dl (8.5-10.1); Creatinine Clr Calc Pharmacy 80.8 ml/min; Est GFR (African American) 73.8; Est GFR (Non-African American) 63.7; Potassium 4.2 mmol/L (3.5-5.1)
[2019-10-15 05:38] LABS: Albumin Globulin Ratio 0.7 (0.9-2); Bilirubin,Total 0.6 mg/dl (0.2-1); Globulin 4.4 gm/dl (2.5-4.0); Total Protein 7.4 gm/dl (6.4-8.2)
--- NOTE | 2019-10-15 08:19 | Hospitalist Progress Note ---
Date of Service October 15, 2019 Assessment & Plan (1) Abdominal pain: secondary to acute interstitial pancreatitis -This is a 44 year old M who has a significant PMH of HTN, HLD, Tobacco abuse, Obesity who presents to ED 2/2 to abdominal pain for 4 to 5 days for which he had poor appetite and minimal oral intake. Patient reports left sided abdomen pain started on Thursday10/09/2019 and had been progressively improving but did not go away so he came to the emergency room on 10/13/2019 -admission CT Abdomen/Pelvis scan without Contrast "Linear density within the base of the left lower lobe consistent with subsegmental atelectasis. No pneumoperitoneum. No pneumatosis. Stable benign- appearing lucent lesion within the proximal left femur. No fractures within the visualized osseous structures. Trace left pleural effusion. The unenhanced liver, spleen, adrenal glands, and gallbladder are unremarkable. No renal or ureteral stones. No hydronephrosis. Mild bladder wall thickening is likely due to underdistention. Stable 5 cm hypodense lesion within the left kidney. This contains a punctate calcification. Given the long-term stability this favors a benign cyst. No retroperitoneal lymphadenopathy. Normal caliber abdominal aorta. Mild thickening and surrounding inflammatory change at the tail of the pancreas as well as trace fluid along the left paracolic gutter. Findings are consistent with acute pancreatitis. Suboptimal evaluation for bowel pathology due to the lack of intravenous and oral contrast. However, there is no definite bowel wall thickening or obstruction. Colonic diverticulosis. No evidence for diverticulitis. Normal appendix." -patient was empirically started on IV ceftriaxone 2 grams daily and metronidazole 500 mg IV every 8 hours with lactated ringer 150 cc/hr -follow up CT Abdomen/Pelvis with IV/oral contrast on admission "findings indicative of acute interstitial pancreatitis. No evidence of pancreatic necrosis. No evidence of bowel obstruction. No evidence of free air. No evidence of acute diverticulitis. No evidence of acute appendicitis. - On 10/14/2019, Gastroenterology service also ordered reference send out labs to screen for testing of : CMV, EBV, Hepatitis, HSV, parvovirus, HIV. These results are still pending (only negative result for Hepatitis B surface antigen and negative result for Hepatitis C antibody has returned) -the 10/14/2019 MRCP: There is no evidence for choledocholithiasis. other radiology impressions of: Acute mid body and distal distal pancreatitis involving the pancreatic body and tail. Moderate peripancreatic infiltrative change with mild reactive wall edematous change of the adjacent splenic flexure of the colon. -[facility] gastroenterology service may arrange Endoscopic ultrasound (EUS) as outpatient in 4 weeks in regards to the pancreatitis workup. Patient may call to confirm Gastroenterology clinic followup at [facility] on [address], [place] [address] -Lactated ringer's was stopped by yesterday night, patient tolerating liquid diets. Left sided abdomen discomforts have not progressed. Patient reports that discomfort still present but it tolerable and wishes to go home. Hospital course and findings and Discharge plans and instructions were discussed extensively -patient may take acetaminophen and ibuprofen every 6 hours as needed for pain and 20 tablets of each is electronically prescribed to [facility] on [address], [place] [address]. Patient should avoid more than 2000 mg of acetaminophen per day (2) Leucocytosis: -admission WBC 13.58 K/ul -10/14/2019 WBC is trending down to 11.5 K/ul and under 10 K/ul by 10/15/2019 -Blood cultures from 10/13/2019 with no growth to date as of 10/15/2019 . no further antibiotics indicated as of 10/15/2019 (3) Elevated LFTs: Elevated Liver Function enzymes (resolved) -admission AST/ALT is 71 and 106 -10/14/2019 AST/ALT has trended down to 45 and 91 -10/15/2019 AST and ALT has normalized to 24 and 61 (4) Hypertension: -continue lisinopril and metoprolol (5) Hyperlipidemia: Obesity -statin may be resumed when patient back on more regular diet. patient advised to have low fat diet after some days of full liquid diet. (6) Microscopic hematuria: -pt with long time microscopic hematuria, follows Dr. Gonzalez - last seen in 2016, has had cystoscopy June 2013 and noted heavy trabeculation with no stricture or BPH -admission UA with 1 + classification for "urine blood" -admitting hospitalist team suggested routine follow up with Urology. Dr. Gonzalez since it has been 3 years since last visit (7) Renal cyst, left: chronic left renal cyst -5cm L renal cyst that is stable -Patient follows Dr. Gonzalez of urology and was last seen in 2017 - she felt no further follow up imaging needed (8) DVT prophylaxis: -Lovenox SQ Patient's primary care provder is in [place] and is Bernardino Ivey PA-C and patient should make hospital follow up in 1 week of hospital discharge Patient's phone number [phone]. His Lorrie [phone] Admission and Anticipated Discharge Date Admission Date: October 13, 2019 Subjective Lactated ringer's was stopped by yesterday night, patient tolerating liquid diets. Left sided abdomen discomforts have not progressed. Patient reports that discomfort still present but it tolerable and wishes to go home. Hospital course and findings and Discharge plans and instructions were discussed extensively Review of Systems Review of Systems: All systems reviewed & are unremarkable except as noted in HPI & below Physical Exam Constitutional: WD/WN, vitals as above Eyes: PERRL, conjunctivae normal, anicteric sclerae EOM intact bilaterally ENMT: external ear and nose normal, oropharynx normal Neck: normal visual inspection Respiratory: normal respiratory effort, lungs clear to auscultation Cardiovascular: Rate/Rhythm: regular rate and regular rhythm Gastrointestinal (Abdomen): normal bowel sounds, soft, nontender, no hepatosplenomegaly Musculoskeletal: Head/Neck/Chest: normocephalic and head atraumatic Neurologic: PERRL, EOMI, accommodation nl, no face palsy, no dysarthria CN's II-XI intact bilaterally Psychiatric: A+Ox3, euthymic affect Results & Data Results & Data ([facility]) Vital Signs (Past 12 Hours) Vital Signs Temp Pulse Resp BP Pulse Ox 10/15/19 07:44 36.8 C 78 18 142/88 H 98 10/14/19 23:12 37.4 C 66 15 132/80 97
[2019-10-15] MEDS: METOPROLOL SUCC 50MG EXT REL TAB PO SCH (08:22)
--- NOTE | 2019-10-15 08:45 | Discharge Summary ---
Date of Service October 15, 2019 Admission HPI Per Admitting Provider This is a 44 year old M who has a significant PMH of HTN, HLD, Tobacco abuse, Obesity who presents to ED 2/2 to abdominal pain x 4-5 days. Pain started Thursday night around 00:00. Pain located L mid abdomen, LUQ with radiation up to L flank. Pain was constant, 10/10, severe, sharp. "I thought maybe I had to go to the bathroom, but I couldn't." He was up almost all night trying to move bowels. Pain made worse with deep breaths and leaning forward. He had minimal improvement with APAP and had old hydrocodone so tried that. He did telemedicine with PCP on Thursday who was concerning for possible diverticulitis and prescribed cipro 500mg bid. He has taken 7 doses of this. Pain started to improve on Thursday and is less severe. He had intermittent fevers 99.6-101 until yesterday. Diminished appetite eating mostly soup and jello. Denies N/V, chills, sweats, lightheaded, dizziness, chest pain, sob, cough, hemetemsis, melena, hematochezia, dysuria, increased urg/freq with urination. He tried a milkshake last evening which causes him to have diarrhea but otherwise denies change in bowel habits. Never had similar sx in past. +FH of diverticulitis in sister and mother. In ED patient remained hemodynamically stable. He was afebrile in ED. Lab work notable for leukocytosis 13 point five 8K, H&H 16.3 and 46.6, platelet 303, sodium 132, BUN 15, creatinine 1.39, AST 71, ALT 106, urinalysis +[address] scan abd/pelvis w/o contrast revealed + tail pancreatitis, no renal stone, + stable 5cm renal cyst stable from prior 2012 CT, Inflammatory change and a small amount of fluid surrounding the tail of the pancreas consistent with acute pancreatitis, Trace left pleural effusion, Colonic diverticulosis. In ED he received IVF and IV toradol with improvement in pain. Principal Diagnosis Abdominal pain secondary to acute interstitial pancreatitis, Elevated Liver Function enzymes (resolved), Leukocytosis (resolved), chronic left renal cyst, Hypertension Discharge Exam Constitutional WD/WN, vitals as above Eyes PERRL, conjunctivae normal, anicteric sclerae EOM intact bilaterally ENMT external ear and nose normal, oropharynx normal Neck normal visual inspection Respiratory normal respiratory effort, lungs clear to auscultation Cardiovascular Rate/Rhythm: regular rate and regular rhythm Gastrointestinal (Abdomen) normal bowel sounds, soft, nontender, no hepatosplenomegaly Musculoskeletal Head/Neck/Chest: normocephalic and head atraumatic Neurologic PERRL, EOMI, accommodation nl, no face palsy, no dysarthria CN's II-XI intact bilaterally Psychiatric A+Ox3, euthymic affect Discharge Data Allergies Allergy/AdvReac Type Severity Reaction Status Date / Time Penicillins Allergy Unknown Unknown- Unverified 10/13/19 13:37 had allergy as a child Consultations 10/13/19 13:21 ED Decision to Admit Stat 10/13/19 14:00 ED Decision to Admit Stat 10/13/19 18:19 Consult Gastroenterology Routine Ordered Studies 10/13/19 12:37 CT abd pelvis wo con Stat 10/13/19 15:08 CT abd pelvis oral and IV con Stat 10/14/19 08:12 MR MRCP Routine Hospital Course (1) Abdominal pain: secondary to acute interstitial pancreatitis -This is a 44 year old M who has a significant PMH of HTN, HLD, Tobacco abuse, Obesity who presents to ED 2/2 to abdominal pain for 4 to 5 days for which he had poor appetite and minimal oral intake. Patient reports left sided abdomen pain started on Thursday10/09/2019 and had been progressively improving but did not go away so he came to the emergency room on 10/13/2019 -admission CT Abdomen/Pelvis scan without Contrast "Linear density within the base of the left lower lobe consistent with subsegmental atelectasis. No pneumoperitoneum. No pneumatosis. Stable benign- appearing lucent lesion within the proximal left femur. No fractures within the visualized osseous structures. Trace left pleural effusion. The unenhanced liver, spleen, adrenal glands, and gallbladder are unremarkable. No renal or ureteral stones. No hydronephrosis. Mild bladder wall thickening is likely due to underdistention. Stable 5 cm hypodense lesion within the left kidney. This contains a punctate calcification. Given the long-term stability this favors a benign cyst. No retroperitoneal lymphadenopathy. Normal caliber abdominal aorta. Mild thickening and surrounding inflammatory change at the tail of the pancreas as well as trace fluid along the left paracolic gutter. Findings are consistent with acute pancreatitis. Suboptimal evaluation for bowel pathology due to the lack of intravenous and oral contrast. However, there is no definite bowel wall thickening or obstruction. Colonic diverticulosis. No evidence for diverticulitis. Normal appendix." -patient was empirically started on IV ceftriaxone 2 grams daily and metronidazole 500 mg IV every 8 hours with lactated ringer 150 cc/hr -follow up CT Abdomen/Pelvis with IV/oral contrast on admission "findings indicative of acute interstitial pancreatitis. No evidence of pancreatic necrosis. No evidence of bowel obstruction. No evidence of free air. No evidence of acute diverticulitis. No evidence of acute appendicitis. - On 10/14/2019, Gastroenterology service also ordered reference send out labs to screen for testing of : CMV, EBV, Hepatitis, HSV, parvovirus, HIV. These results are still pending (only negative result for Hepatitis B surface antigen and negative result for Hepatitis C antibody has returned) -the 10/14/2019 MRCP: There is no evidence for choledocholithiasis. other radiology impressions of: Acute mid body and distal distal pancreatitis involving the pancreatic body and tail. Moderate peripancreatic infiltrative change with mild reactive wall edematous change of the adjacent splenic flexure of the colon. -[facility] gastroenterology service may arrange Endoscopic ultrasound (EUS) as outpatient in 4 weeks in regards to the pancreatitis workup. Patient may call to confirm Gastroenterology clinic followup at [facility] on [address], [place] [address] -Lactated ringer's was stopped by yesterday night, patient tolerating liquid diets. Left sided abdomen discomforts have not progressed. Patient reports that discomfort still present but it tolerable and wishes to go home. Hospital course and findings and Discharge plans and instructions were discussed extensively -patient may take acetaminophen and ibuprofen every 6 hours as needed for pain and 20 tablets of each is electronically prescribed to [facility] on [address] [place] [address]. Patient should avoid more than 2000 mg of acetaminophen per day (2) Leucocytosis: -admission WBC 13.58 K/ul -10/14/2019 WBC is trending down to 11.5 K/ul and under 10 K/ul by 10/15/2019 -Blood cultures from 10/13/2019 with no growth to date as of 10/15/2019 . no further antibiotics indicated as of 10/15/2019 (3) Elevated LFTs: Elevated Liver Function enzymes (resolved) -admission AST/ALT is 71 and 106 -10/14/2019 AST/ALT has trended down to 45 and 91 -10/15/2019 AST and ALT has normalized to 24 and 61 (4) Hypertension: -continue lisinopril and metoprolol (5) Hyperlipidemia: Obesity -statin may be resumed when patient back on more regular diet. patient advised to have low fat diet after some days of full liquid diet. (6) Microscopic hematuria: -pt with long time microscopic hematuria, follows Dr. Gonzalez - last seen in 2016, has had cystoscopy June 2013 and noted heavy trabeculation with no stricture or BPH -admission UA with 1 + classification for "urine blood" -admitting hospitalist team suggested routine follow up with Urology. Dr. Gonzalez since it has been 3 years since last visit (7) Renal cyst, left: chronic left renal cyst -5cm L renal cyst that is stable -Patient follows Dr. Gonzalez of urology and was last seen in 2017 - she felt no further follow up imaging needed (8) DVT prophylaxis: -Lovenox SQ Patient's primary care provder is in [place] and is Bernardino Ivey PA-C and patient should make hospital follow up in 1 week of hospital discharge Patient's phone number [phone]. His Lorrie [phone] Total Time Total Time Spent Total Time Spent (In Minutes): 40 minutes Total Time Includes: Examination of the Patient, Discharge Planning, Medication Reconciliation and Communication With Other Providers Discharge Plan Discharge Items Patient Disposition: Home - Self-Care Reason For Visit: ACUTE PANCREATITIS Discharge Diagnosis: Abdominal pain secondary to acute interstitial pancreatitis, Elevated Liver Function enzymes (resolved), Leukocytosis (resolved), chronic left renal cyst, Hypertension Condition on Discharge: Good Activity: Resume your previous activity Non-emergency contact: Primary Care Provider Call non-emergency contact if: you have any medication questions Follow-up/Referrals: Bernardino Ivey [Primary Care Provider] - Diet: Full liquid and Low Fat Addtl Attending Provider Instructions: -statin may be resumed when patient back on more regular diet. patient advised to have low fat diet after some days of full liquid diet -patient may take acetaminophen and ibuprofen every 6 hours as needed for pain and 20 tablets of each is electronically prescribed to [facility] on [address], [place] [address]. Patient should avoid more than 2000 mg of acetaminophen per day -Patient's primary care provder is in [place] and is Bernardino Ivey PA-C and patient should make hospital follow up in 1 week of hospital discharge -the 10/15/2019 MRCP: There is no evidence for choledocholithiasis. other radiology impressions of: Acute mid body and distal distal pancreatitis involving the pancreatic body and tail. Moderate peripancreatic infiltrative change with mild reactive wall edematous change of the adjacent splenic flexure of the colon. -[facility] gastroenterology service may arrange Endoscopic ultrasound (EUS) as outpatient in 4 weeks in regards to the pancreatitis workup. Patient may call to confirm Gastroenterology clinic followup at [facility] on [address], [place] [address] -admission UA with 1 + classification for "urine blood" admitting hospitalist team suggested routine follow up with Urology. Dr. Gonzalez since it has been 3 years since last visit Addtl [employer] Provider Instructions: -admission AST/ALT is 71 and 106 -10/14/2019 AST/ALT has trended down to 45 and 91 -10/15/2019 AST and ALT has normalized to 24 and 61 Pending Studies at Discharge: Yes Studies:: Blood cultures from 10/13/2019 with no growth to date as of 10/15/2019 On 10/14/2019, Gastroenterology service also ordered reference send out labs to screen for testing of : CMV, EBV, Hepatitis, HSV, parvovirus, HIV. These results are still pending (only negative result for Hepatitis B surface antigen and negative result for Hepatitis C antibody has returned) Stand-Alone Forms: [facility], Smoking Cessation Medications and DC Order Prescriptions: New acetaminophen 325 mg tablet 325 mg PO Q6H PRN (Reason: fever or pain) 5 Days Qty: 20 RF: 0 ibuprofen 200 mg tablet 200 mg PO Q6H PRN (Reason: pain, moderate) 5 Days Qty: 20 RF: 0 Continued metoprolol succinate [Toprol XL] 50 mg tablet extended release 24 hr 50 mg PO QAM RF: 0 lisinopril [Zestril] 20 mg tablet 20 mg PO HS RF: 0 loratadine [Claritin] 10 mg Tablet 10 mg PO QAM RF: 0 Discontinued acetaminophen [Tylenol Extra Strength] 500 mg Tablet 500 - 1,000 mg PO Q6H PRN (Reason: Pain) RF: 0 simvastatin [Zocor] 20 mg tablet 20 mg PO HS RF: 0 hydrocodone-acetaminophen 2.5-325 mg Tablet 0 tab PO Q6H PRN (Reason: Pain) RF: 0 ciprofloxacin HCl [Cipro] 500 mg Tablet 500 mg PO Q12H RF: 0 Discharge Orders: Discharge Order (Routine); Ordered 10/15/19 Ordered By: Franklyn Feldman Admission Data Admit Date/Time: 10/13/19 14:25 Attending Provider: Franklyn Feldman Admit Provider: Cindy Martínez Primary Care Provider: Bernardino Ivey Other Providers: Cindy Martínez ; Michelle Dangelo
[2019-10-18 21:45] LABS: CMV IgG Antibody <0.60 U/mL; CMV IgM Antibody <30.00 AU/mL; HIV 1 RNA PCR Copies/ML <20 Copies/mL; HIV-1 RNA Log Copies/mL <1.30 Log cps/mL; Hepatitis A Antibody IgM NON-REACTIVE (NON-REACTIVE); Hepatitis B Core Antibody IgM NON-REACTIVE (NON-REACTIVE); Herpes Simplex Ab IgG-2 <0.90 index; Parvovirus IgG 3.1 (<0.9); Parvovirus IgM 0.1 (<0.9)
== END 2019-10-15 11:43 | disposition home or self-care (01) | DRG 440 ==
LOC: ED 12:29 → INTOOBSV 14:25 → SUATTDRO 14:25 → 3E 14:25